=== PATIENT | male | born 1990 | race Caucasian/White ===

== ENCOUNTER 2018-12-12 16:46 | Emergency (ER) | payer MEDICAID, OTHER ==
[2018-12-12 17:00] VITALS: BP 144/84
--- NOTE | 2018-12-12 17:01 | ED Physician Documentation ---
PD HPI ANIMAL BITE - Stated complaint Stated Complaint: DOG BITE - Chief complaint Chief Complaint: Laceration - History obtained from History obtained from: Patient - History of Present Illness Location of injury(ies): Left hand Details of the event: Dog, Bite, Pet animal, Well appearing Timing - onset: How many days ago (2) Timing - details: Abrupt onset, Still present (small lac in left palm without redness nor drainage. main concern is for tetanus booster.) Worsened by: Palpating Associated symptoms: Other (no drainage). No: Weakness, Numbness, Swelling, Discolored Contributing factors: No: Immunocompromised, Asplenic Similar symptoms before: Has not had sx before Review of Systems Constitutional: denies: Fever, Chills Neurologic: denies: Focal weakness, Numbness PD PAST MEDICAL HISTORY - Past Medical History Cardiovascular: None Endocrine/Autoimmune: None - Present Medications Home Medications: Ambulatory Orders Medication Instructions Recorded Confirmed Clindamycin HCl [Clindamycin 300MG 300 mg PO Q6H #20 capsule 12/12/18 CAP] - Allergies Allergies/Adverse Reactions: Allergies Allergy/AdvReac Type Severity Reaction Status Date / Time Penicillins Allergy Rash Verified 12/12/18 17:00 PD ED PE NORMAL - Vitals Vital signs reviewed: Yes - General General: Alert and oriented X 3, Well developed/nourished - Derm Derm: Normal color, Warm and dry - Extremities Extremities: Other (Left palm with a small puncture laceration that appears partial thickness to full-thickness just on the several millimeter size. There is an abrasion also. There is no signs of redness or drainage. It is locally tender with minimal swelling. He has good range of motion of the fingers without any pain in the palm. There is normal sensation at the fingers.) - Neuro Neuro: Alert and oriented X 3, No motor deficit, No sensory deficit Results - Vitals Vitals: Oxygen O2 Source Room air PD MEDICAL DECISION MAKING - ED course Complexity details: considered differential (has been 2 days since injury without signs of infection. His main concern is for tetanus update. Discussed abx treatment empirically versus if infection develops, which is how he would prefer doing it. ), d/w patient Departure - Departure Disposition: 01 Home, Self Care Clinical Impression: Dog bite of hand Qualifiers: Encounter type: initial encounter Laterality: left Qualified Code(s): S61.452A - Open bite of left hand, initial encounter; W54.0XXA - Bitten by dog, initial encounter Condition: Stable Record reviewed to determine appropriate education?: Yes Instructions: ED Bite Dog Prescriptions: Clindamycin HCl [Clindamycin 300MG CAP] 300 mg PO Q6H #20 capsule Comments: Continue with the wound care if cleaning it with soap and water 2-3 times a day. You could apply some type of ointment to it lightly. Clindamycin antibiotic if signs of infection develop. Discharge Date/Time: 12/12/18 17:32
[2018-12-12] MEDS ORDERED: TETANUS/DIPHTHERIA/PERTUSSIS 0.5 ML SYRINGE IM ONE (17:20)
== END 2018-12-12 17:32 | disposition home or self-care (01) ==
LOC: ED 16:46
DX: S61.452A Open bite of left hand, initial encounter (principal); W54.0XXA Bitten by dog, initial encounter; Z23 Encounter for immunization
CPT/HCPCS: 90471; 99282; 99283